=== PATIENT | female | born 1935 | race Caucasian/White ===

== ENCOUNTER → 2017-10-06 | Outpatient (CLI) | payer MEDICARE ==
[~2017-10-06] MED LIST: ACET500 PO; ALPR.25 PO; ASCO500 PO; ASPI81CH PO; ASPI81EC PO; CEPH500 PO; CLON1; CYAN100 PO; DOCSEN PO; ERGO400 PO; ERGO50000 PO; FENO160 PO; FENO67; FENO67 PO; FISH OIL 1,0001 EAC1 PO; FISH1000 PO; FLEC100 PO; FLEC50 PO; FLONASE ALLERG9.9 ML; FURO20 PO; Fish Oil PO; GUAI600T33 PO; HYDACE5; HYDCHL12.5 PO; LISHYD2012; LORA1 PO; LORA10ER PO; MECL25 PO; METO2.5; METO50; METO50ER; MULVITMIND PO; NABU750; NABU750 PO; Norco 5-325 Ta1 EACH PO; OMEP20ER; OMEP20ER PO; OXYACE5T PO; PANT40 PO; POTCHL20ER PO; PROM25 PO; SERT50 PO; SIMV10 PO; SIMV20 PO; SULTRIDS PO; TELM40 PO; TELM80 PO; THYR60; TRAZ50 PO; VYTORIN; WARF2.5 PO; WARF5 PO; ZYRTEC10 M1 PO; ZYRTEC10 M2; Zantac150 MG PO
[2017-10-06 10:26] LABS: Source, Urine Clean Catch
[2017-10-06 12:41] LABS: Bilirubin, Urine Neg (Neg); Blood, Urine Neg (Neg); Glucose Qualitative, Urine Neg (Neg); Ketones, Urine Neg (Neg); Leukocyte Esterase, Urine 1+ (Neg); Nitrite, Urine Neg (Neg); Protein, Urine Neg (Neg); Urobilinogen, Urine NORM (Normal)
[2017-10-06 12:54] LABS: Appearance, Urine Clear (Clear); Color, Urine Pale Yellow (P-Yellow)
[2017-10-06 12:55] LABS: Bacteria Few /hpf; Red Blood Cells, Urine 0-2 /hpf (0-2); Squamous Epithelial Cells Few /hpf (Few)
== END | disposition home or self-care (01) ==
LOC: LAB 10:24
PROVIDERS: Obstetrics & Gynecology
DX: R39.9 Unspecified symptoms and signs involving the genitourinary system (principal)
CPT/HCPCS: 81001; 87086

== ENCOUNTER → 2017-11-21 | Outpatient (CLI) | payer MEDICARE ==
[2017-11-21 11:40] LABS: Source, Urine Clean Catch
[2017-11-21 12:40] LABS: Blood, Urine 2+ (Neg); Glucose Qualitative, Urine Neg (Neg); Ketones, Urine Neg (Neg); Leukocyte Esterase, Urine 3+ (Neg); Nitrite, Urine Neg (Neg); Protein, Urine 2+ (Neg); Urobilinogen, Urine NORM (Normal)
[2017-11-21 13:15] LABS: Appearance, Urine Hazy (Clear); Bilirubin, Urine 2+ (Neg); Color, Urine Yellow (P-Yellow)
[2017-11-21 13:16] LABS: White Blood Cells, Urine TNTC /hpf (0-5)
[2017-11-21 13:17] LABS: Bacteria Few /hpf; Squamous Epithelial Cells Few /hpf (Few)
== END | disposition home or self-care (01) ==
LOC: LAB 11:39
PROVIDERS: Obstetrics & Gynecology
DX: R39.9 Unspecified symptoms and signs involving the genitourinary system (principal)
CPT/HCPCS: 81001; 87077; 87086; 87186

== ENCOUNTER → 2017-12-01 | Outpatient (CLI) | payer MEDICARE ==
[2017-12-01 18:49] LABS: Appearance, Urine Clear (Clear); Bilirubin, Urine Neg (Neg); Blood, Urine Neg (Neg); Color, Urine Yellow (P-Yellow); Glucose Qualitative, Urine Neg (Neg); Ketones, Urine Neg (Neg); Leukocyte Esterase, Urine 1+ (Neg); Nitrite, Urine Neg (Neg); Protein, Urine Neg (Neg); Specific Gravity, Urine 1.015 (1.003-1.022); Urobilinogen, Urine NORM (Normal)
[2017-12-01 19:04] LABS: Bacteria Few /hpf; Red Blood Cells, Urine 0-2 /hpf (0-2); Squamous Epithelial Cells Few /hpf (Few)
== END ==
LOC: LAB 14:10
PROVIDERS: Obstetrics & Gynecology
DX: N39.0 Urinary tract infection, site not specified (principal)
CPT/HCPCS: 81001; 87077; 87086; 87186

== ENCOUNTER → 2017-12-15 | Outpatient (CLI) | payer MEDICARE ==
[2017-12-15 16:09] LABS: Source, Urine Clean Catch
[2017-12-15 17:58] LABS: Appearance, Urine Clear (Clear); Bilirubin, Urine Neg (Neg); Blood, Urine Neg (Neg); Color, Urine Yellow (P-Yellow); Glucose Qualitative, Urine Neg (Neg); Ketones, Urine Neg (Neg); Leukocyte Esterase, Urine 2+ (Neg); Nitrite, Urine Neg (Neg); Protein, Urine Neg (Neg); Specific Gravity, Urine 1.015 (1.003-1.022); Urobilinogen, Urine NORM (Normal)
[2017-12-15 18:11] LABS: Red Blood Cells, Urine 0-2 /hpf (0-2); Squamous Epithelial Cells Few /hpf (Few)
[2017-12-15 18:12] LABS: Bacteria Few /hpf
== END ==
LOC: LAB 14:00
PROVIDERS: Obstetrics & Gynecology
DX: R39.9 Unspecified symptoms and signs involving the genitourinary system (principal)
CPT/HCPCS: 81001; 87086

== ENCOUNTER → 2018-02-19 | Outpatient (CLI) | END | disposition home or self-care (01) ==

== ENCOUNTER → 2018-08-08 | Outpatient (CLI) | payer MEDICARE ==
[2018-08-08 13:46] LABS: Bilirubin, Urine Neg (Neg); Blood, Urine 1+ (Neg); Glucose Qualitative, Urine Neg (Neg); Ketones, Urine Neg (Neg); Leukocyte Esterase, Urine 3+ (Neg); Nitrite, Urine Neg (Neg); Protein, Urine 2+ (Neg); Specific Gravity, Urine 1.015 (1.003-1.022); Urobilinogen, Urine NORM (Normal)
[2018-08-08 14:07] LABS: Appearance, Urine Hazy (Clear); Color, Urine Yellow (P-Yellow)
[2018-08-08 14:08] LABS: Bacteria Many /hpf; Squamous Epithelial Cells Mod /hpf (Few)
== END ==
LOC: LAB SHORT 13:20 → LAB 13:20
PROVIDERS: Family Medicine
DX: N39.0 Urinary tract infection, site not specified (principal)
CPT/HCPCS: 81001; 87086

== ENCOUNTER 2018-12-03 18:53 | Emergency (ER) | payer MEDICARE ==
[~2018-12-03] VITALS: Ht 165.1 cm; Wt 90.7 kg
[2018-12-03 19:50] LABS: BASOPHILS ABSOLUTE AUTO 0.02 K/mm3 (0.00-0.23); BASOPHILS PERCENT AUTO 0 % (0-2); EOSINOPHILS ABSOLUTE AUTO 0.02 K/mm3 (0.00-0.68); EOSINOPHILS PERCENT AUTO 0 % (0-6); Hematocrit 39.3 % (33.0-51.0); Hemoglobin 13.4 g/dL (11.5-16.0); IMMATURE GRAN ABSOLUTE AUTO 0.02 K/mm3 (0.00-0.10); IMMATURE GRAN PERCENT AUTO 0 % (0-1); LYMPHOCYTES ABSOLUTE AUTO 1.88 K/mm3 (0.84-5.20); LYMPHOCYTES PERCENT AUTO 24 % (21-46); MONOCYTES ABSOLUTE AUTO 1.26 K/mm3 (0.16-1.47); MONOCYTES PERCENT AUTO 16 % (4-13); Mean Corpuscular HGB 33.8 pg (26.0-34.0); Mean Corpuscular HGB Conc 34.1 g/dL (31.5-36.5); Mean Corpuscular Volume 99 fL (80-100); Mean Platelet Volume 8.6 fL (9.1-12.4); NEUTROPHILS ABSOLUTE AUTO 4.75 K/mm3 (1.96-9.15); NEUTROPHILS PERCENT AUTO 60 % (41-73); Platelet Count 134 K/mm3 (150-400); RDW Coefficient Variation 12.8 % (11.7-14.2); Red Blood Cell Count 3.97 M/mm3 (3.80-5.20); White Blood Cell Count 7.95 K/mm3 (4.00-11.30)
[2018-12-03 20:03] LABS: International Normalized Ratio 1.91; Prothrombin Time Results 19.1 Sec (9.7-11.5)
[2018-12-03 20:12] LABS: Source, Urine Clean Catch
[2018-12-03 20:20] LABS: Bilirubin, Urine Neg (Neg); Blood, Urine 2+ (Neg); Glucose Qualitative, Urine Neg (Neg); Ketones, Urine Neg (Neg); Leukocyte Esterase, Urine 1+ (Neg); Nitrite, Urine Neg (Neg); Protein, Urine 1+ (Neg); Specific Gravity, Urine 1.005 (1.003-1.022); Urobilinogen, Urine NORM (Normal)
[2018-12-03 20:21] LABS: Alanine Aminotransfer (ALT/SGP 25 U/L (12-78); Albumin, Blood 3.9 g/dL (3.4-5.0); Albumin/Globulin Ratio 1.3 (0.8-1.8); Alk Phos 62 U/L (50-136); Anion Gap 8 mmol/L (6-16); Aspartate Aminotrans (AST/SGOT 19 U/L (12-37); Bilirubin, Total 0.6 mg/dL (0.1-1.0); Blood Urea Nitrogen 24 mg/dL (8-24); Bun/Creatinine Ratio 32.5 (12.0-20.0); CO2, Blood 28 mmol/L (21-32); Calcium, Blood 8.7 mg/dL (8.5-10.1); Chloride, Blood 92 mmol/L (98-108); Creatinine, Blood 0.74 mg/dL (0.40-1.00); Globulin, Blood 2.9 g/dL (2.2-4.0); Glomerular Filtration Rate >60 (60-); Glucose, Blood 99 mg/dL (70-99); Potassium, Blood 4.1 mmol/L (3.5-5.5); Sodium, Blood 128 mmol/L (136-145); Total Protein, Blood 6.8 g/dL (6.4-8.2); Troponin I <0.015 ng/mL (0.000-0.040)
[2018-12-03 20:33] LABS: Appearance, Urine Hazy (Clear); Color, Urine Yellow (P-Yellow)
[2018-12-03 20:35] LABS: Bacteria Rare /hpf; Mucus Light (0-Heavy); Red Blood Cells, Urine Rare /hpf (0-2); Squamous Epithelial Cells Many /hpf (Few); White Blood Cells, Urine 0-2 /hpf (0-5)
[2018-12-03 22:03] LABS: Influenza A Positive (NEGATIVE); Influenza B Negative (NEGATIVE)
[2018-12-03] MEDS ORDERED: Tamiflu75 MG PO (22:33)
== END 2018-12-03 22:48 | disposition home or self-care (01) ==
LOC: ER 18:53
PROVIDERS: Emergency Medicine; Physician Assistant
DX: J10.1 Influenza due to other identified influenza virus with other respiratory manifestations (principal); Z88.8 Allergy status to other drugs, medicaments and biological substances; Z79.899 Other long term (current) drug therapy; Z79.01 Long term (current) use of anticoagulants
CPT/HCPCS: 36415; 71046; 80053; 81001; 84484; 85025; 85610; 87086; 87804; 93005; 93010; 99284-25

== ENCOUNTER 2018-12-06 07:40 | Emergency (ER) | payer MEDICARE ==
[~2018-12-06] VITALS: Ht 172.7 cm; Wt 81.7 kg
[~2018-12-06 07:40] MED LIST changes: +Tamiflu75 MG PO
[2018-12-06 08:59] LABS: BASOPHILS ABSOLUTE AUTO 0.01 K/mm3 (0.00-0.23); BASOPHILS PERCENT AUTO 0 % (0-2); EOSINOPHILS ABSOLUTE AUTO 0.09 K/mm3 (0.00-0.68); EOSINOPHILS PERCENT AUTO 2 % (0-6); Hematocrit 38.7 % (33.0-51.0); Hemoglobin 13.1 g/dL (11.5-16.0); IMMATURE GRAN ABSOLUTE AUTO 0.01 K/mm3 (0.00-0.10); IMMATURE GRAN PERCENT AUTO 0 % (0-1); LYMPHOCYTES ABSOLUTE AUTO 2.51 K/mm3 (0.84-5.20); LYMPHOCYTES PERCENT AUTO 50 % (21-46); MONOCYTES ABSOLUTE AUTO 0.93 K/mm3 (0.16-1.47); MONOCYTES PERCENT AUTO 18 % (4-13); Mean Corpuscular HGB 33.7 pg (26.0-34.0); Mean Corpuscular HGB Conc 33.9 g/dL (31.5-36.5); Mean Corpuscular Volume 100 fL (80-100); Mean Platelet Volume 8.8 fL (9.1-12.4); NEUTROPHILS ABSOLUTE AUTO 1.52 K/mm3 (1.96-9.15); NEUTROPHILS PERCENT AUTO 30 % (41-73); Platelet Count 120 K/mm3 (150-400); RDW Coefficient Variation 12.4 % (11.7-14.2); RDW Standard Deviation 45.5 fL (35.1-46.3); Red Blood Cell Count 3.89 M/mm3 (3.80-5.20); White Blood Cell Count 5.07 K/mm3 (4.00-11.30)
[2018-12-06 09:07] LABS: Alanine Aminotransfer (ALT/SGP 26 U/L (12-78); Albumin, Blood 3.8 g/dL (3.4-5.0); Albumin/Globulin Ratio 1.3 (0.8-1.8); Alk Phos 53 U/L (50-136); Anion Gap 9 mmol/L (6-16); Aspartate Aminotrans (AST/SGOT 32 U/L (12-37); Bilirubin, Total 0.7 mg/dL (0.1-1.0); Blood Urea Nitrogen 23 mg/dL (8-24); Bun/Creatinine Ratio 30.8 (12.0-20.0); CO2, Blood 26 mmol/L (21-32); Calcium, Blood 8.4 mg/dL (8.5-10.1); Chloride, Blood 93 mmol/L (98-108); Creatinine, Blood 0.75 mg/dL (0.40-1.00); Globulin, Blood 2.9 g/dL (2.2-4.0); Glomerular Filtration Rate >60 (60-); Glucose, Blood 99 mg/dL (70-99); Potassium, Blood 3.8 mmol/L (3.5-5.5); Sodium, Blood 128 mmol/L (136-145); Total Protein, Blood 6.7 g/dL (6.4-8.2); Troponin I <0.015 ng/mL (0.000-0.040)
== END 2018-12-06 10:55 | disposition home or self-care (01) ==
LOC: ER 07:40
PROVIDERS: Physician Assistant
DX: J10.1 Influenza due to other identified influenza virus with other respiratory manifestations (principal); Z91.048 Other nonmedicinal substance allergy status; Z79.01 Long term (current) use of anticoagulants; Z79.899 Other long term (current) drug therapy; Z95.0 Presence of cardiac pacemaker
CPT/HCPCS: 36415; 71046; 80053; 83880; 84484; 85025; 93005; 93010; 94640; 99285-25

== ENCOUNTER → 2019-02-09 | Outpatient (CLI) | payer MEDICARE ==
[2019-02-09 12:21] LABS: International Normalized Ratio 1.81; Prothrombin Time Results 18.2 Sec (9.7-11.5)
== END ==
LOC: LAB SHORT 11:15 → LAB EV 11:15
PROVIDERS: Nurse Practitioner
DX: Z79.01 Long term (current) use of anticoagulants (principal); Z51.81 Encounter for therapeutic drug level monitoring
CPT/HCPCS: 85610

== ENCOUNTER 2019-06-08 15:08 | Emergency (ER) | payer MEDICARE ==
[~2019-06-08] VITALS: Ht 165.1 cm; Wt 93.9 kg
[2019-06-08 15:45] LABS: BASOPHILS ABSOLUTE AUTO 0.03 K/mm3 (0.00-0.23); BASOPHILS PERCENT AUTO 0 % (0-2); EOSINOPHILS ABSOLUTE AUTO 0.09 K/mm3 (0.00-0.68); EOSINOPHILS PERCENT AUTO 1 % (0-6); Hematocrit 42.7 % (33.0-51.0); IMMATURE GRAN ABSOLUTE AUTO 0.02 K/mm3 (0.00-0.10); IMMATURE GRAN PERCENT AUTO 0 % (0-1); LYMPHOCYTES ABSOLUTE AUTO 4.16 K/mm3 (0.84-5.20); LYMPHOCYTES PERCENT AUTO 50 % (21-46); MONOCYTES ABSOLUTE AUTO 0.77 K/mm3 (0.16-1.47); MONOCYTES PERCENT AUTO 9 % (4-13); Mean Corpuscular HGB 33.2 pg (26.0-34.0); Mean Corpuscular HGB Conc 32.8 g/dL (31.5-36.5); Mean Corpuscular Volume 101 fL (80-100); Mean Platelet Volume 8.7 fL (9.1-12.4); NEUTROPHILS ABSOLUTE AUTO 3.18 K/mm3 (1.96-9.15); NEUTROPHILS PERCENT AUTO 39 % (41-73); Platelet Count 188 K/mm3 (150-400); RDW Coefficient Variation 11.9 % (11.7-14.2); RDW Standard Deviation 44.5 fL (35.1-46.3); Red Blood Cell Count 4.22 M/mm3 (3.80-5.20); White Blood Cell Count 8.25 K/mm3 (4.00-11.30)
[2019-06-08 15:59] LABS: Prothrombin Time Results 19.9 Sec (9.7-11.5)
[2019-06-08 16:08] LABS: Alanine Aminotransfer (ALT/SGP 24 U/L (12-78); Albumin, Blood 3.8 g/dL (3.4-5.0); Albumin/Globulin Ratio 1.2 (0.8-1.8); Alk Phos 68 U/L (50-136); Anion Gap 6 mmol/L (6-16); Aspartate Aminotrans (AST/SGOT 23 U/L (12-37); Bilirubin, Total 0.5 mg/dL (0.1-1.0); Blood Urea Nitrogen 32 mg/dL (8-24); Bun/Creatinine Ratio 33.9 (12.0-20.0); CO2, Blood 29 mmol/L (21-32); Calcium, Blood 9.2 mg/dL (8.5-10.1); Chloride, Blood 98 mmol/L (98-108); Creatinine, Blood 0.94 mg/dL (0.40-1.00); Globulin, Blood 3.2 g/dL (2.2-4.0); Glomerular Filtration Rate >60 (60-); Glucose, Blood 119 mg/dL (70-99); Potassium, Blood 4.5 mmol/L (3.5-5.5); Sodium, Blood 133 mmol/L (136-145)
== END 2019-06-08 19:11 | disposition home or self-care (01) ==
LOC: ER 15:08
PROVIDERS: Physician Assistant
DX: I10 Essential (primary) hypertension (principal); I48.91 Unspecified atrial fibrillation; Z95.0 Presence of cardiac pacemaker; Z87.01 Personal history of pneumonia (recurrent); Z88.5 Allergy status to narcotic agent; Z79.899 Other long term (current) drug therapy; Z79.01 Long term (current) use of anticoagulants
CPT/HCPCS: 36415; 70450; 80053; 85025; 85610; 85730; 99284-25

== ENCOUNTER → 2019-07-24 | Outpatient (CLI) | payer MEDICARE | END | disposition home or self-care (01) | LOC: LAB 18:00 → LAB SHORT 18:00 | DX: N39.0 Urinary tract infection, site not specified (principal) | CPT/HCPCS: 87086 ==

== ENCOUNTER → 2019-08-07 | Outpatient (CLI) | payer MEDICARE | END | disposition home or self-care (01) | LOC: LAB 14:10 → LAB SHORT 14:10 → LAB FUT 08-07 15:10 | DX: N39.0 Urinary tract infection, site not specified (principal) | CPT/HCPCS: 87077; 87086; 87186 ==

== ENCOUNTER → 2019-10-04 | Outpatient (CLI) | payer MEDICARE | LOC: LAB 14:53 → LAB SHORT 14:53 → LAB FUT 10-04 12:10 | DX: N39.0 Urinary tract infection, site not specified (principal) | CPT/HCPCS: 87086 ==

== ENCOUNTER → 2019-10-23 | Outpatient (CLI) | payer MEDICARE | END | disposition home or self-care (01) | LOC: LAB UCHC 15:45 → LAB SHORT 15:45 | DX: R30.0 Dysuria (principal) | CPT/HCPCS: 87086 ==

== ENCOUNTER → 2020-03-10 | Outpatient (CLI) | payer MEDICARE | END | disposition home or self-care (01) | LOC: LAB 15:00 → LAB SHORT 15:00 | DX: R35.0 Frequency of micturition (principal) | CPT/HCPCS: 87086 ==

== ENCOUNTER → 2020-07-02 | Outpatient (CLI) | payer MEDICARE | END | disposition home or self-care (01) | LOC: LAB SHORT 15:17 → LAB 15:17 | DX: C44.311 Basal cell carcinoma of skin of nose (principal) | CPT/HCPCS: 88305 ==

== ENCOUNTER → 2021-06-18 | Outpatient (CLI) | payer MEDICARE | END | disposition home or self-care (01) | LOC: LAB SHORT 11:00 → LAB 11:00 | DX: N18.30 Chronic kidney disease, stage 3 unspecified (principal) | CPT/HCPCS: 82043 ==

== ENCOUNTER → 2021-06-23 | Outpatient (CLI) | payer MEDICARE ==
[2021-06-23 15:17] LABS: Source, Urine Voided
[2021-06-23 16:00] LABS: Bacteria Few /hpf; Squamous Epithelial Cells Mod /hpf (Few); White Blood Cells, Urine 50-100 /hpf (0-5)
== END | disposition home or self-care (01) ==
LOC: LAB SHORT 10:30 → LAB 10:30
PROVIDERS: Nurse Practitioner Family
DX: R30.9 Painful micturition, unspecified (principal)
CPT/HCPCS: 81015; 87077; 87086; 87186

== ENCOUNTER → 2022-12-31 | Outpatient (CLI) | payer MEDICARE | END | disposition home or self-care (01) | LOC: LAB SHORT 15:00 → LAB 15:00 | DX: R32 Unspecified urinary incontinence (principal) | CPT/HCPCS: 87086 ==

== ENCOUNTER → 2023-02-15 | Outpatient (CLI) | payer MEDICARE | LOC: LAB SHORT 12:03 → PLD 12:03 | DX: D48.5 Neoplasm of uncertain behavior of skin (principal) | CPT/HCPCS: 88305 ==

== ENCOUNTER → 2023-04-15 | Outpatient (CLI) | payer MEDICARE ==
[~2023-04-15] MED LIST changes: +HYDCHL25 PO; +JANTOVEN5 M2 PO; +METOPROLOL SUCC25 MG PO; +NITROGLYCERIN0.4 M3 SL; +PANTOPRAZOLE SO40 M2 PO; +Simvastatin20 MG PO; +TELMISARTAN80 MG PO
== END ==
LOC: LAB 14:56 → LAB SHORT 14:56
DX: R30.0 Dysuria (principal)
CPT/HCPCS: 87077; 87086; 87186

== ENCOUNTER → 2023-05-23 | Outpatient (CLI) | payer MEDICARE | LOC: LAB 15:43 → LAB SHORT 15:43 | DX: R30.0 Dysuria (principal) | CPT/HCPCS: 87086 ==

== ENCOUNTER → 2024-05-09 | Outpatient (CLI) | payer MEDICARE | END | disposition home or self-care (01) | LOC: LAB 14:00 → LAB SHORT 14:00 | DX: R50.9 Fever, unspecified (principal) | CPT/HCPCS: 87077; 87086; 87186 ==

== ENCOUNTER → 2024-11-19 | Outpatient (CLI) | payer MEDICARE | LOC: LAB 17:31 → LAB SHORT 17:31 | DX: R30.0 Dysuria (principal) | CPT/HCPCS: 87077; 87086; 87186 ==

== ENCOUNTER → 2025-03-25 | Outpatient (CLI) | payer MEDICARE ==
[~2025-03-25] MED LIST changes: +AZO D-MANNOSE500 M1 PO; +BISA5EC PO; +BUSP5 PO; +CALCIUM 1,0001 EAC1 PO; +CEFACLOR PO; +CEFP200 PO; +CLOTRIMAZOLE 321 GM VAG; +ESTRADIOL1 EAC2; +HYDROCODONE-AC1 EA19 PO; +MIRALAX17 GM PO; +Macrobid 100 M100 MG PO; +SENN187 PO; +VALA500 PO; +VITAMIN D310 MC4 PO
[2025-03-25 13:54] LABS: International Normalized Ratio 3.73; Prothrombin Time Results 37.2 Sec (9.7-11.5)
== END | disposition home or self-care (01) ==
LOC: LAB 11:49 → LAB SHORT 11:49
PROVIDERS: Family Medicine
DX: B02.9 Zoster without complications (principal); R79.1 Abnormal coagulation profile
CPT/HCPCS: 85610

== ENCOUNTER 2025-03-26 12:28 | Inpatient (IN) | payer MEDICARE ==
[~2025-03-26] VITALS: Ht 162.6 cm; Wt 80.0 kg
[~2025-03-26 12:28] MED LIST changes: -AZO D-MANNOSE500 M1 PO; -BISA5EC PO; -CLOTRIMAZOLE 321 GM VAG; -FLONASE ALLERG9.9 ML; -HYDROCODONE-AC1 EA19 PO; -MIRALAX17 GM PO; -SENN187 PO; -VALA500 PO; -VITAMIN D310 MC4 PO
[2025-03-26] MEDS ORDERED: CLOTRIMAZOLE 321 GM VAG (13:15)
[2025-03-26] MEDS ORDERED: BISA5EC PO (13:16)
[2025-03-26] MEDS ORDERED: HYDCHL12.5 PO (13:17)
[2025-03-26] MEDS ORDERED: AZO D-MANNOSE500 M1 PO (13:17)
[2025-03-26] MEDS ORDERED: HYDROCODONE-AC1 EA19 PO (13:18)
[2025-03-26] MEDS ORDERED: MIRALAX17 GM PO (13:19)
[2025-03-26] MEDS ORDERED: SENN187 PO (13:19)
[2025-03-26] MEDS ORDERED: VITAMIN D310 MC4 PO (13:20)
[2025-03-26 14:20] LABS: Source, Urine Straight Cath
[2025-03-26 14:23] LABS: pH Blood Venous 7.37 (7.34-7.37)
[2025-03-26 14:46] LABS: Hematocrit 40.1 % (33.0-51.0); Hemoglobin 13.1 g/dL (11.5-16.0); Mean Corpuscular HGB Conc 32.7 g/dL (31.5-36.5); Mean Corpuscular Volume 98 fL (80-100); NRBC ABSOLUTE 0.00 K/mm3 (0.00-0.02); NRBC Auto 0.0 /100 WBC (0.0-0.2); Platelet Count 121 K/mm3 (150-400); RDW Coefficient Variation 13.3 % (11.7-14.2); RDW Standard Deviation 48.3 fL (35.1-46.3)
[2025-03-26 15:00] LABS: Bilirubin, Urine Neg (Neg); Color, Urine Yellow (P-Yellow); Glucose Qualitative, Urine Neg (Neg); Ketones, Urine 1+ (Neg); Leukocyte Esterase, Urine Neg (Neg); Protein, Urine 1+ (Neg); Specific Gravity, Urine 1.015 (1.003-1.022); Urobilinogen, Urine NORM (Normal)
[2025-03-26 15:08] LABS: Alanine Aminotransfer (ALT/SGP 27.0 U/L (12-78); Albumin, Blood 3.8 g/dL (3.4-5.0); Albumin/Globulin Ratio 1.3 (0.8-1.8); Anion Gap 9.0 mmol/L (3-11); Aspartate Aminotrans (AST/SGOT 24.0 U/L (12-37); Bilirubin, Total 0.7 mg/dL (0.1-1.0); Blood Urea Nitrogen 17.0 mg/dL (8-24); CO2, Blood 29.0 mmol/L (21-32); Calcium, Blood 9.6 mg/dL (8.5-10.1); Chloride, Blood 98.0 mmol/L (98-108); Creatinine, Blood 0.85 mg/dL (0.40-1.00); Globulin, Blood 3.0 g/dL (2.2-4.0); Glucose, Blood 94.0 mg/dL (70-99); Potassium, Blood 3.9 mmol/L (3.5-5.5); Sodium, Blood 132.0 mmol/L (136-145); Total Protein, Blood 6.8 g/dL (6.4-8.2)
[2025-03-26 15:58] LABS: BASOPHILS ABSOLUTE MAN 0.14 K/mm3 (0.00-0.23); BASOPHILS PERCENT MAN 2 % (0-2); EOSINOPHILS ABSOLUTE MAN 0.07 K/mm3 (0.00-0.68); EOSINOPHILS PERCENT MAN 1 % (0-6); LYMPHOCYTES ABSOLUTE MAN 4.70 K/mm3 (0.84-5.20); LYMPHOCYTES PERCENT MAN 64 % (21-46); MONOCYTES ABSOLUTE MAN 0.66 K/mm3 (0.16-1.47); MONOCYTES PERCENT MAN 9 % (4-13); NEUTROPHILS ABSOLUTE MAN 1.76 K/mm3 (1.96-9.15); SEG NEUTROPHILS PERCENT MAN 24 % (41-73)
[2025-03-26 16:29] LABS: Prothrombin Time Results 20.7 Sec (9.7-11.5)
[2025-03-26] MEDS ORDERED: CefTRIAXone Sodium 1,000 MG in NS 100 ML IV SCH (17:00)
[2025-03-26] MEDS ORDERED: NS 1,000 ML IV SCH (17:00)
[2025-03-26] MEDS ORDERED: Ketorolac Tromethamine 15mg Vial IV PRN (17:25)
--- NOTE | 2025-03-26 17:27 | NUR ---
"Spiritual Care Consult | Ordered by Tg Tolliver MD Pt. is awake in her room when she welcomes my visit. Pt. is pleasant but displays evidence of some confusion. Two nieces are at bedside. Facilitated a life review and listened with empathy and a calming presence. Also considered matters of vineet and belief. Pt. requested this public health policy analyst to pray for her. Prayed with Pt. Pt. continued to display some evidence of pleasant confusion but welcomed this public health policy analyst to return tomorrow."
[2025-03-26] MEDS ORDERED: Lactobacil 2-S.Thermo-Bifido 1 1 Cap PO SCH (18:00)
--- NOTE | 2025-03-26 18:05 | NUR ---
RECIEVED REPORT FROM FAITH SAUL.
--- NOTE | 2025-03-26 18:18 | NUR ---
REPORT TO FAITH ANN ASSUMING CARE WHEN PATIENT ARRIVES TO 332.
[2025-03-26 19:34] VITALS: BP 181/70
--- NOTE | 2025-03-26 20:35 | NUR ---
PT ADMITTEDAT 184 TO ROOM 332, AIRBORN ISO FOR LIKELY SHINGLES TO RCW- ALTERED MENTAL STATUS. PT AND FAMILY ORIENTED TO ROOM SET UP, SAFETY, AND CALL LIGHT. OBTAINED VS, ELEVATED BP, PT SEVERELY CONSFUSED. SET BED ALARM. FAMILY EAGER TO SPEAK WITH SOCIAL WORK TOMORROW REGUARDING PLACEMENT- INSTRUCTED TO COME AFTER 10AM AND HAVE A DISCUSSION WITH SS. REPORTED ALL TO NOC FAITH COCHRAN, TAKING OVER CARE OF PT
[2025-03-26] MEDS ORDERED: Miconazole 2% Vaginal Cream 45 GM VAG SCH (21:00)
[2025-03-26] MEDS ORDERED: VALTREX PO (21:24)
[2025-03-26] MEDS ORDERED: Norco 5-325 Ta1 EACH PO (21:25)
[2025-03-27 05:43] VITALS: BP 175/60
[2025-03-27 08:00] VITALS: BP 184/71
[2025-03-27 08:19] LABS: Hematocrit 39.9 % (33.0-51.0); Hemoglobin 13.2 g/dL (11.5-16.0); Mean Corpuscular HGB Conc 33.1 g/dL (31.5-36.5); Mean Corpuscular Volume 97 fL (80-100); NRBC ABSOLUTE 0.00 K/mm3 (0.00-0.02); NRBC Auto 0.0 /100 WBC (0.0-0.2); Platelet Count 116 K/mm3 (150-400); RDW Coefficient Variation 13.2 % (11.7-14.2); RDW Standard Deviation 47.0 fL (35.1-46.3)
[2025-03-27 08:30] LABS: Prothrombin Time Results 20.1 Sec (9.7-11.5)
[2025-03-27 08:35] LABS: Alanine Aminotransfer (ALT/SGP 26.0 U/L (12-78); Albumin, Blood 3.5 g/dL (3.4-5.0); Albumin/Globulin Ratio 1.3 (0.8-1.8); Anion Gap 12.0 mmol/L (3-11); Aspartate Aminotrans (AST/SGOT 26.0 U/L (12-37); Bilirubin, Total 0.6 mg/dL (0.1-1.0); Blood Urea Nitrogen 14.0 mg/dL (8-24); CO2, Blood 25.0 mmol/L (21-32); Calcium, Blood 9.0 mg/dL (8.5-10.1); Chloride, Blood 100.0 mmol/L (98-108); Creatinine, Blood 0.71 mg/dL (0.40-1.00); Globulin, Blood 2.7 g/dL (2.2-4.0); Glucose, Blood 95.0 mg/dL (70-99); Potassium, Blood 3.8 mmol/L (3.5-5.5); Sodium, Blood 133.0 mmol/L (136-145); Total Protein, Blood 6.2 g/dL (6.4-8.2)
[2025-03-27 08:41] LABS: BASOPHILS ABSOLUTE MAN 0.00 K/mm3 (0.00-0.23); BASOPHILS PERCENT MAN 0 % (0-2); EOSINOPHILS ABSOLUTE MAN 0.00 K/mm3 (0.00-0.68); EOSINOPHILS PERCENT MAN 0 % (0-6); LYMPHOCYTES ABSOLUTE MAN 3.49 K/mm3 (0.84-5.20); LYMPHOCYTES PERCENT MAN 48 % (21-46); MONOCYTES ABSOLUTE MAN 0.87 K/mm3 (0.16-1.47); MONOCYTES PERCENT MAN 12 % (4-13); NEUTROPHILS ABSOLUTE MAN 2.91 K/mm3 (1.96-9.15); SEG NEUTROPHILS PERCENT MAN 40 % (41-73)
[2025-03-27] MEDS ORDERED: Enoxaparin 40 MG/0.4 ML SYR SC SCH (09:00)
--- NOTE | 2025-03-27 09:59 | NUR ---
0700-ASSUMED CARE OF PATIENT. PATIENT IS ATTEMPTING TO GET OUT OF BED. ASSISTED TO BATHROOM. VOIDS WITH NO DIFFICULTY. PATIENT IS PLEASANTLY CONFUSED. ORIENTED ONLY TO SELF.BED ALARM ON, CALL LIGHT WITHIN REACH. REMINDED TO CALL FOR ASSISTANCE WHEN NEEDING TO GET UP.
[2025-03-27] MEDS ORDERED: Flonase 0.05% N16 GM (14:47)
--- NOTE | 2025-03-27 16:27 | NUR ---
PATIENT REMAINS CONFUSED ALL SHIFT. NIECES AT BEDSIDE MOST OF DAY. PATIENT MEDICATED WITH TYLENOL AND TORADOL FOR PAIN THIS SHIFT. HAD ADEQUATE PAIN RELIEF FROM TORADOL. RESTING WITH EYES CLOSED AT THIS TIME. SHINGLES TO LEFT TORSO OPEN, MINIMAL DRAINAGE NOTED. BED/CHAIR ALARM ON AT ALL TIMES. CALL LIGHT WITHIN REACH
[2025-03-27 17:05] VITALS: BP 184/74
--- NOTE | 2025-03-27 18:32 | NUR ---
WOUND CARE TO LEFT FOOT DONE. PODIATRY IN ROOM. STATES WOUND LOOKS LIKE IT IS HEALING WELL AT THIS TIME. WOUND CLEANSED WITH WOUND CLEANSER, ABD APPLIED AND HELD IN PLACE WITH KERLIX. DRESSING TO RIGHT 2ND TOE CHANGED. WOUND CLEANSED WITH SOUND CLEANSER AND NEW DRESSING APPLIED. WOUND HEALING WELL. NO SIGNS OR SYMPTOMS OF INFECTION DRESSINGS TO BILATERAL KNEES CLEAN, DRY AND INTACT PATIENT TOLERATED WELL
[2025-03-27] MEDS ORDERED: CEFACLOR PO (19:14)
[2025-03-27 19:18] VITALS: BP 162/56
[2025-03-28 03:41] VITALS: BP 157/82
--- NOTE | 2025-03-28 04:54 | NUR ---
SHIFT SUMMARY PT HAS BEEN RESTING IN BED COMFORTABLY OVERNIGHT. PT DX IS ENCEPHALOPATHY 2NDARY TO UTI. PT IS AIRBORNE PRECAUTIONS FOR SHINGLES. PT HAS SHINGLES RASH ON L MID BACK. PT HAS BEEN AOX1, TO SELF. PT HAS BEEN CONFUSED OVERNIGHT, BUT HAS BEEN EASILY REDIRECTED. SHE DOES NOT CALL APPROPRIATELY. PT HAS BEEN 1PA TO BATHROOM W/ FWW. SHE C/O BACK PAIN OVERNIGHT, RELIEVED W/ REST AND REPOSITIONING. PT HAS HAD NO OTHER COMPLAINTS AND NO ACUTE EVENTS OVERNIGHT.
[2025-03-28 07:28] LABS: BASOPHILS ABSOLUTE AUTO 0.02 K/mm3 (0.00-0.23); BASOPHILS PERCENT AUTO 0 % (0-2); EOSINOPHILS ABSOLUTE AUTO 0.05 K/mm3 (0.00-0.68); EOSINOPHILS PERCENT AUTO 1 % (0-6); Hematocrit 38.5 % (33.0-51.0); Hemoglobin 12.8 g/dL (11.5-16.0); Mean Corpuscular HGB Conc 33.2 g/dL (31.5-36.5); Mean Corpuscular Volume 95 fL (80-100); NRBC ABSOLUTE 0.00 K/mm3 (0.00-0.02); NRBC Auto 0.0 /100 WBC (0.0-0.2); Platelet Count 126 K/mm3 (150-400); RDW Coefficient Variation 13.1 % (11.7-14.2); RDW Standard Deviation 45.9 fL (35.1-46.3)
[2025-03-28 07:34] LABS: IMMATURE GRAN ABSOLUTE AUTO 0.01 K/mm3 (0.00-0.10); IMMATURE GRAN PERCENT AUTO 0 % (0-1); LYMPHOCYTES ABSOLUTE AUTO 5.18 K/mm3 (0.84-5.20); LYMPHOCYTES PERCENT AUTO 70 % (21-46); MONOCYTES ABSOLUTE AUTO 0.63 K/mm3 (0.16-1.47); MONOCYTES PERCENT AUTO 9 % (4-13); NEUTROPHILS ABSOLUTE AUTO 1.56 K/mm3 (1.96-9.15); NEUTROPHILS PERCENT AUTO 21 % (41-73)
--- NOTE | 2025-03-28 07:35 | NUR ---
ASSUMED CARE OF PATIENT. PATIENT IS SITTING UP IN CHAIR. REMAINS CONFUSED AT THIS TIME. ORIENTED TO SELF ONLY. CALL LIGHT WITHIN REACH
[2025-03-28 07:42] LABS: Alanine Aminotransfer (ALT/SGP 27.0 U/L (12-78); Albumin, Blood 3.5 g/dL (3.4-5.0); Albumin/Globulin Ratio 1.2 (0.8-1.8); Anion Gap 8.0 mmol/L (3-11); Aspartate Aminotrans (AST/SGOT 25.0 U/L (12-37); Bilirubin, Total 0.6 mg/dL (0.1-1.0); Blood Urea Nitrogen 17.0 mg/dL (8-24); CO2, Blood 27.0 mmol/L (21-32); Calcium, Blood 9.1 mg/dL (8.5-10.1); Chloride, Blood 102.0 mmol/L (98-108); Creatinine, Blood 0.7 mg/dL (0.40-1.00); Globulin, Blood 2.8 g/dL (2.2-4.0); Glucose, Blood 98.0 mg/dL (70-99); Potassium, Blood 3.6 mmol/L (3.5-5.5); Sodium, Blood 133.0 mmol/L (136-145); Total Protein, Blood 6.3 g/dL (6.4-8.2)
[2025-03-28 07:55] LABS: Prothrombin Time Results 22.5 Sec (9.7-11.5)
[2025-03-28 08:01] VITALS: BP 165/71
[2025-03-28 09:04] LABS: BASOPHILS ABSOLUTE MAN 0.00 K/mm3 (0.00-0.23); BASOPHILS PERCENT MAN 0 % (0-2); EOSINOPHILS ABSOLUTE MAN 0.07 K/mm3 (0.00-0.68); EOSINOPHILS PERCENT MAN 1 % (0-6); LYMPHOCYTES ABSOLUTE MAN 4.76 K/mm3 (0.84-5.20); LYMPHOCYTES PERCENT MAN 64 % (21-46); MONOCYTES ABSOLUTE MAN 1.71 K/mm3 (0.16-1.47); MONOCYTES PERCENT MAN 23 % (4-13); NEUTROPHILS ABSOLUTE MAN 0.89 K/mm3 (1.96-9.15); SEG NEUTROPHILS PERCENT MAN 12 % (41-73)
[2025-03-28] MEDS ORDERED: VISBIOME 112.51 EACH PO (14:41)
--- NOTE | 2025-03-28 15:05 | NUR ---
DISCHARGE ORDERS RECEIVED, REVIEWED/DISCUSSED WITH PATIENT AND FAMILY PATIENT IS CONFUSED AND HAS DIFFICULTY UNDERSTANDING. QUESTIONS ASKED AND ANSWERED. FAMILY VERBALIZES UNDERSTANDING IF DISCHARGE INSTRUCIONS. PATIENT DISCHARGED VIA WC ACCOMPANIED BY FAMILY
== END 2025-03-28 16:11 | disposition home health service (06) | DRG 689 ==
LOC: ER 12:28 → MEDS 15:59
PROVIDERS: Student in an Organized Health Care Education/Training Program; ADMIT Hospitalist
DX: N39.0 Urinary tract infection, site not specified (principal); G93.41 Metabolic encephalopathy; F02.84 Dementia in other diseases classified elsewhere, unspecified severity, with anxiety; I48.91 Unspecified atrial fibrillation; I10 Essential (primary) hypertension; I25.10 Atherosclerotic heart disease of native coronary artery without angina pectoris; K21.9 Gastro-esophageal reflux disease without esophagitis; E78.5 Hyperlipidemia, unspecified; G47.33 Obstructive sleep apnea (adult) (pediatric); B02.9 Zoster without complications; G30.9 Alzheimer's disease, unspecified; B37.31 Acute candidiasis of vulva and vagina; M54.9 Dorsalgia, unspecified; G89.29 Other chronic pain; T42.4X5A Adverse effect of benzodiazepines, initial encounter; Z88.1 Allergy status to other antibiotic agents; Z88.8 Allergy status to other drugs, medicaments and biological substances; Z79.51 Long term (current) use of inhaled steroids; Z79.890 Hormone replacement therapy; Z79.01 Long term (current) use of anticoagulants; Z79.899 Other long term (current) drug therapy; Z87.01 Personal history of pneumonia (recurrent); Z95.0 Presence of cardiac pacemaker; Z90.49 Acquired absence of other specified parts of digestive tract; Z96.653 Presence of artificial knee joint, bilateral; Z87.440 Personal history of urinary (tract) infections; R79.1 Abnormal coagulation profile
CPT/HCPCS: 36415; 70450; 80053; 82140; 82803; 85025; 85610; 93005; 93010; 96365; 96372; 96375; 96376; 99285-25; A6590; A9270; G0378; J0696; J1650; J1885; J7030

== ENCOUNTER → 2025-09-23 | Outpatient (CLI) | payer MEDICARE ==
[~2025-09-23] MED LIST changes: +AZO D-MANNOSE500 M1 PO; +BISA5EC PO; +CLOTRIMAZOLE 321 GM VAG; +Flonase 0.05% N16 GM; +HYDROCODONE-AC1 EA19 PO; +MIRALAX17 GM PO; +SENN187 PO; +VALTREX PO; +VISBIOME 112.51 EACH PO; +VITAMIN D310 MC4 PO
[2025-09-23 18:35] LABS: Anion Gap 8.0 mmol/L (3-11); Blood Urea Nitrogen 19.0 mg/dL (8-24); CO2, Blood 29.0 mmol/L (21-32); Calcium, Blood 9.2 mg/dL (8.5-10.1); Chloride, Blood 105.0 mmol/L (98-108); Creatinine, Blood 0.76 mg/dL (0.40-1.00); Glucose, Blood 96.0 mg/dL (70-99); Potassium, Blood 3.8 mmol/L (3.5-5.5); Sodium, Blood 138.0 mmol/L (136-145)
== END | disposition home or self-care (01) ==
LOC: LAB SHORT 11:35 → LAB 11:35
PROVIDERS: Internal Medicine
DX: E55.9 Vitamin D deficiency, unspecified (principal); E53.8 Deficiency of other specified B group vitamins
CPT/HCPCS: 80048; 82306; 82607; 82746